=== PATIENT | male | born 1990 | race Hispanic/Latino ===

== ENCOUNTER 2020-11-06 19:01 | Emergency (ER) | payer BC, OTHER ==
[2020-11-06 19:21] LABS: BASOPHILS % (AUTO) 0.7 % (0.0-5.0); EOSINOPHILS % (AUTO) 1.8 % (0.0-8.0); LYMPHOCYTES % (AUTO) 39.4 % (21.0-51.0); MEAN CORPUSCULAR HEMOGLOBIN 29.3 pg (27.0-33.0); MEAN CORPUSCULAR HGB CONC 34.1 g/dL (32.0-36.0); MONOCYTES % (AUTO) 7.7 % (3.0-13.0); PLATELET COUNT (AUTO) 333 K/uL (130-400); RED BLOOD CELL COUNT(AUTO) 5.93 MIL/uL (4.50-6.20); RED CELL DISTRIBUTION WIDTH 12.5 % (11.0-15.5); WHITE BLOOD COUNT (AUTO) 10.2 K/uL (4.8-10.8)
[2020-11-06 19:26] LABS: POTASSIUM 3.6 mmol/L (3.5-5.1)
[2020-11-06 19:31] LABS: ALBUMIN 4.3 g/dL (3.5-5.0); BILIRUBIN,TOTAL 0.6 mg/dL (0.2-1.0); TOTAL PROTEIN, SERUM 8.7 g/dL (6.0-8.3)
[2020-11-06 19:41] LABS: APPEARANCE,URINE Clear (CLEAR); BILIRUBIN,URINE Negative (NEGATIVE); COLOR,URINE Yellow (YELLOW); GLUCOSE, URINE (UA) Negative (NEGATIVE); KETONES,URINE Negative (NEGATIVE); LEUKOCYTE ESTERASE ,URINE Negative (NEGATIVE); NITRATE,URINE Negative (NEGATIVE); OCCULT BLOOD,URINE Negative (NEGATIVE); PROTEIN,URINE Negative (NEGATIVE)
[2020-11-06] MEDS ORDERED: LORAZEPAM 2 MG/ML 1 ML VIAL ONE (19:43)
== END 2020-11-06 20:13 | disposition home or self-care (01) ==
LOC: EDH 19:04
DX: F41.9 Anxiety disorder, unspecified (principal); R07.89 Other chest pain
CPT/HCPCS: 36415; 71045; 80053; 81003; 84484; 85025; 93005; 96374; 99285; J2060

== ENCOUNTER 2020-11-27 07:19 | Emergency (ER) | payer SELFPAY ==
[~2020-11-27] VITALS: Ht 180.3 cm; Wt 106.1 kg
[2020-11-27 07:22] VITALS: BP 155/100
[2020-11-27] MEDS ORDERED: HYDROXYZINE 25 MG TABLET PO SCH (08:00)
[2020-11-27 08:30] VITALS: BP 124/74
[2020-11-27] MEDS ORDERED: METH4TAB3 PO (10:02)
[2020-11-27 10:29] VITALS: BP 125/74
== END 2020-11-27 10:30 | disposition home or self-care (01) ==
LOC: EDH 07:19
DX: F41.9 Anxiety disorder, unspecified (principal); M54.2 Cervicalgia; M54.6 Pain in thoracic spine

== ENCOUNTER 2020-12-04 01:09 | Emergency (ER) | payer SELFPAY ==
[~2020-12-04] VITALS: Ht 180.3 cm; Wt 108.9 kg
[~2020-12-04 01:09] MED LIST: METH4TAB3 PO
[2020-12-04] MEDS ORDERED: LIDOP TP (09:29)
== END 2020-12-04 03:00 | disposition left against medical advice (07) ==
LOC: EDH 01:24
DX: M54.2 Cervicalgia (principal); Z53.21 Procedure and treatment not carried out due to patient leaving prior to being seen by health care provider

== ENCOUNTER 2020-12-04 06:59 | Emergency (ER) | payer OTHER ==
[~2020-12-04] VITALS: Ht 180.3 cm; Wt 111.6 kg
[2020-12-04] MEDS ORDERED: KETOROLAC 60 MG VIAL (30MG/ML) IM ONE (07:45)
[2020-12-04] MEDS ORDERED: ACETAMINOPHEN 500 MG TABLET PO ONE (07:45)
[2020-12-04 08:00] VITALS: BP 128/72
[2020-12-04] MEDS ORDERED: LIDOP TP (09:29)
[2020-12-04 09:34] VITALS: BP 126/72
[2020-12-04 09:53] VITALS: BP 126/72
== END 2020-12-04 09:56 | disposition home or self-care (01) ==
LOC: EDH 06:59
DX: M54.2 Cervicalgia (principal); F41.9 Anxiety disorder, unspecified; F32.9 Major depressive disorder, single episode, unspecified; Z79.899 Other long term (current) drug therapy
CPT/HCPCS: 36415; 72125; 86308; 87071; 87880; 96372; 99284; J1885

== ENCOUNTER 2021-02-16 17:34 | Emergency (ER) | payer OTHER ==
[~2021-02-16] VITALS: Ht 177.8 cm; Wt 108.9 kg
[~2021-02-16 17:34] MED LIST changes: +LIDOP TP
[2021-02-16 17:52] VITALS: BP 153/95
[2021-02-16 17:58] LABS: APPEARANCE,URINE Clear (CLEAR); BILIRUBIN,URINE Negative (NEGATIVE); COLOR,URINE Yellow (YELLOW); GLUCOSE, URINE (UA) Negative (NEGATIVE); KETONES,URINE Negative (NEGATIVE); LEUKOCYTE ESTERASE ,URINE Negative (NEGATIVE); NITRATE,URINE Negative (NEGATIVE); OCCULT BLOOD,URINE Trace (NEGATIVE); PROTEIN,URINE Negative (NEGATIVE); UROBILINOGEN,URINE 0.2 mg/dL (0.2-1.0)
[2021-02-16 18:03] LABS: BASOPHILS % (AUTO) 0.4 % (0.0-5.0); EOSINOPHILS % (AUTO) 2.3 % (0.0-8.0); HEMATOCRIT 48.9 % (42-54); LYMPHOCYTES % (AUTO) 29.1 % (21.0-51.0); MEAN CORPUSCULAR HEMOGLOBIN 29.3 pg (27.0-33.0); MEAN CORPUSCULAR HGB CONC 33.1 g/dL (32.0-36.0); MEAN CORPUSCULAR VOLUME 88.6 fL (79-99); MONOCYTES % (AUTO) 7.6 % (3.0-13.0); NEUTROPHILS % (AUTO) 60.2 % (40.0-77.0); PLATELET COUNT (AUTO) 334 K/uL (130-400); RED BLOOD CELL COUNT(AUTO) 5.52 MIL/uL (4.50-6.20); RED CELL DISTRIBUTION WIDTH 12.6 % (11.0-15.5); WHITE BLOOD COUNT (AUTO) 9.2 K/uL (4.8-10.8)
[2021-02-16 18:16] LABS: CREATININE 0.9 mg/dL (0.5-1.5); POTASSIUM 4.1 mmol/L (3.5-5.1)
[2021-02-16 18:20] LABS: BILIRUBIN,TOTAL 0.4 mg/dL (0.2-1.0); TOTAL PROTEIN, SERUM 8.6 g/dL (6.0-8.3)
[2021-02-16 18:25] LABS: BACTERIA,URINE Rare /HPF (None Seen); RBC,URINE 0-1 /HPF (0-1); SQUAMOUS EPITHELIAL CELL,UR Rare /HPF (0-2); WBC,URINE 0-1 /HPF (0-1)
[2021-02-16] MEDS ORDERED: KETOROLAC 30MG VIAL (30MG/ML) IM ONE (19:00)
[2021-02-16] MEDS ORDERED: DEXAMETHASONE SOD PHOSPHATE 10MG/ML 1ML VIAL ONE (19:56)
[2021-02-16] MEDS ORDERED: IBUP-2070 PO (19:56)
[2021-02-16] MEDS ORDERED: ORPH-43 PO (19:56)
[2021-02-16] MEDS ORDERED: DICY20TA2 PO (19:56)
[2021-02-16] MEDS ORDERED: DEXAMETHASONE 10MG/ML 1ML VIAL 10 MG in 0.9%NACL 50ML 50 ML IV ONE (20:00)
== END 2021-02-16 20:08 | disposition home or self-care (01) ==
LOC: EDH 17:34
DX: S16.1XXA Strain of muscle, fascia and tendon at neck level, initial encounter (principal); R19.7 Diarrhea, unspecified; X58.XXXA Exposure to other specified factors, initial encounter; Y93.89 Activity, other specified; Y92.89 Other specified places as the place of occurrence of the external cause; Y99.8 Other external cause status
CPT/HCPCS: 36415; 80053; 81001; 82150; 83690; 85025; 96365; 96372; 99284; J1100 ×2; J1885

== ENCOUNTER 2021-03-25 19:54 | Emergency (ER) | payer MEDICAID ==
[~2021-03-25] VITALS: Ht 177.8 cm; Wt 107.5 kg
[~2021-03-25 19:54] MED LIST changes: +DICY20TA2 PO; +IBUP-2070 PO; +ORPH-43 PO
[2021-03-25] MEDS ORDERED: MAG/ALUM/SIMETH 30 ML UDCUP PO ONE (21:30)
[2021-03-25] MEDS ORDERED: LIDOCAINE HCL 2% VISCOUS 15 ML UDCUP PO ONE (21:30)
[2021-03-25 21:32] LABS: EOSINOPHILS % (AUTO) 3.1 % (0.0-8.0); HEMATOCRIT 47.3 % (42-54); LYMPHOCYTES % (AUTO) 30.5 % (21.0-51.0); MEAN CORPUSCULAR HEMOGLOBIN 29.6 pg (27.0-33.0); MEAN CORPUSCULAR HGB CONC 33.4 g/dL (32.0-36.0); MEAN CORPUSCULAR VOLUME 88.6 fL (79-99); MONOCYTES % (AUTO) 8.6 % (3.0-13.0); NEUTROPHILS % (AUTO) 56.2 % (40.0-77.0); PLATELET COUNT (AUTO) 307 K/uL (130-400); RED BLOOD CELL COUNT(AUTO) 5.34 MIL/uL (4.50-6.20); RED CELL DISTRIBUTION WIDTH 12.3 % (11.0-15.5); WHITE BLOOD COUNT (AUTO) 7.8 K/uL (4.8-10.8)
[2021-03-25] MEDS ORDERED: ACET-2247 PO (22:09)
[2021-03-25 22:44] VITALS: BP 136/70
== END 2021-03-25 22:45 | disposition home or self-care (01) ==
LOC: EDH 19:54
DX: J02.9 Acute pharyngitis, unspecified (principal); M54.2 Cervicalgia; Z79.1 Long term (current) use of non-steroidal anti-inflammatories (NSAID); Z79.52 Long term (current) use of systemic steroids
CPT/HCPCS: 36415; 85025; 86308; 87880

== ENCOUNTER 2021-10-17 03:32 | Emergency (ER) | payer MEDICAID ==
[~2021-10-17] VITALS: Ht 177.8 cm; Wt 108.9 kg
[~2021-10-17 03:32] MED LIST changes: +ACET-2247 PO
[2021-10-17 03:56] LABS: BASOPHILS % (AUTO) 0.8 % (0.0-5.0); EOSINOPHILS % (AUTO) 4.4 % (0.0-8.0); HEMATOCRIT 50.3 % (42-54); LYMPHOCYTES % (AUTO) 41.2 % (21.0-51.0); MEAN CORPUSCULAR HEMOGLOBIN 29.7 pg (27.0-33.0); MEAN CORPUSCULAR HGB CONC 33.4 g/dL (32.0-36.0); MONOCYTES % (AUTO) 7.7 % (3.0-13.0); NEUTROPHILS % (AUTO) 45.2 % (40.0-77.0); PLATELET COUNT (AUTO) 306 K/uL (130-400); RED BLOOD CELL COUNT(AUTO) 5.65 MIL/uL (4.50-6.20); RED CELL DISTRIBUTION WIDTH 12.5 % (11.0-15.5)
[2021-10-17] MEDS ORDERED: NITROGLYCERIN 1GM OINT 1 INCH/1GM TD ONE (04:00)
[2021-10-17] MEDS ORDERED: ASPIRIN 325MG TAB PO ONE (04:00)
[2021-10-17 04:06] LABS: POTASSIUM 4.1 mmol/L (3.5-5.1)
[2021-10-17 04:12] LABS: BILIRUBIN,TOTAL 0.5 mg/dL (0.2-1.0); TOTAL PROTEIN, SERUM 8.1 g/dL (6.0-8.3)
[2021-10-17 06:13] VITALS: BP 120/76
== END 2021-10-17 06:22 | disposition home or self-care (01) ==
LOC: EDH 03:32
DX: T17.1XXA Foreign body in nostril, initial encounter (principal); J34.89 Other specified disorders of nose and nasal sinuses; R07.89 Other chest pain; R05.8 Other specified cough; R20.8 Other disturbances of skin sensation; R79.89 Other specified abnormal findings of blood chemistry; R03.0 Elevated blood-pressure reading, without diagnosis of hypertension; Z79.899 Other long term (current) drug therapy; Z98.890 Other specified postprocedural states; X58.XXXA Exposure to other specified factors, initial encounter; Y93.89 Activity, other specified; Y92.89 Other specified places as the place of occurrence of the external cause; Y99.8 Other external cause status
CPT/HCPCS: 36415; 71045; 80053; 84484; 85025; 93005

== ENCOUNTER 2021-11-22 13:42 | Emergency (ER) | payer MEDICAID ==
[~2021-11-22] VITALS: Ht 177.8 cm; Wt 110.7 kg
[2021-11-22 13:48] VITALS: BP 147/104
[2021-11-22] MEDS ORDERED: 0.9%NACL 1000ML 1,000 ML IV ONE (14:00)
[2021-11-22] MEDS ORDERED: NAPR500T6 PO (14:58)
[2021-11-22] MEDS ORDERED: FLUT15.845 NS (14:58)
[2021-11-22] MEDS ORDERED: CETI10TA57 PO (14:58)
[2021-11-22] MEDS ORDERED: KETOROLAC 15MG/ML VIAL (15MG/ML) IV ONE (15:00)
== END 2021-11-22 16:40 | disposition home or self-care (01) ==
LOC: EDH 13:42
DX: J06.9 Acute upper respiratory infection, unspecified (principal); R51.9 Headache, unspecified; Z20.822 Contact with and (suspected) exposure to COVID-19
CPT/HCPCS: 87635; 87804 ×2; 96374; 99283; C9803; J1885

== ENCOUNTER 2022-02-23 21:55 | Emergency (ER) | payer MEDICAID ==
[~2022-02-23] VITALS: Ht 177.8 cm; Wt 107.5 kg
[~2022-02-23 21:55] MED LIST changes: +CETI10TA57 PO; +FLUT15.845 NS; +NAPR500T6 PO
[2022-02-23 21:57] VITALS: BP 139/100
[2022-02-23 22:26] LABS: BASOPHILS % (AUTO) 0.5 % (0.0-5.0); EOSINOPHILS % (AUTO) 3.5 % (0.0-8.0); HEMATOCRIT 47.6 % (42-54); LYMPHOCYTES % (AUTO) 36.5 % (21.0-51.0); MEAN CORPUSCULAR HGB CONC 33.6 g/dL (32.0-36.0); MEAN CORPUSCULAR VOLUME 86.4 fL (79-99); MONOCYTES % (AUTO) 7.9 % (3.0-13.0); NEUTROPHILS % (AUTO) 51.3 % (40.0-77.0); PLATELET COUNT (AUTO) 292 K/uL (130-400); RED BLOOD CELL COUNT(AUTO) 5.51 MIL/uL (4.50-6.20); RED CELL DISTRIBUTION WIDTH 12.7 % (11.0-15.5); WHITE BLOOD COUNT (AUTO) 7.7 K/uL (4.8-10.8)
[2022-02-23] MEDS ORDERED: MAG/ALUM/SIMETH 30 ML UDCUP PO ONE (22:30)
[2022-02-23] MEDS ORDERED: LIDOCAINE HCL 2% VISCOUS 15 ML UDCUP PO ONE (22:30)
[2022-02-23] MEDS ORDERED: FAMOTIDINE 20MG TAB PO ONE (22:30)
[2022-02-23] MEDS ORDERED: KETOROLAC 60 MG VIAL (30MG/ML) IM ONE (22:30)
[2022-02-23] MEDS ORDERED: ONDANSETRON 4MG TABLET PO ONE (22:30)
[2022-02-23] MEDS ORDERED: DICYCLOMINE HCL 10 MG/5 ML ML PO ONE (22:30)
[2022-02-23 22:36] LABS: CREATININE 0.9 mg/dL (0.5-1.5); POTASSIUM 3.8 mmol/L (3.5-5.1)
[2022-02-23 22:48] LABS: TOTAL PROTEIN, SERUM 8.1 g/dL (6.0-8.3)
[2022-02-23 23:00] LABS: APPEARANCE,URINE CLEAR (CLEAR); BILIRUBIN,URINE NEGATIVE (NEGATIVE); COLOR,URINE LIGHT-YELLOW (YELLOW); GLUCOSE, URINE (UA) NEGATIVE (NEGATIVE); KETONES,URINE NEGATIVE (NEGATIVE); LEUKOCYTE ESTERASE ,URINE NEGATIVE Leu/uL (NEGATIVE); NITRATE,URINE NEGATIVE (NEGATIVE); OCCULT BLOOD,URINE NEGATIVE (NEGATIVE); PH,URINE 6.5 (5.0-8.0); PROTEIN,URINE NEGATIVE (NEGATIVE); UROBILINOGEN,URINE 0.2 mg/dL (0.2-1.0)
[2022-02-23] MEDS ORDERED: TAMS-1 PO (23:01)
[2022-02-23] MEDS ORDERED: DICY20TA2 PO (23:01)
== END 2022-02-23 23:20 | disposition home or self-care (01) ==
LOC: EDH 21:55
DX: N20.0 Calculus of kidney (principal); R10.12 Left upper quadrant pain; E66.9 Obesity, unspecified; Z68.34 Body mass index [BMI] 34.0-34.9, adult; Z79.899 Other long term (current) drug therapy; Z98.890 Other specified postprocedural states
CPT/HCPCS: 99284; 74176; 84484; 80053; 83690; 85025; 81003; 36415; 96372; Q0162; J1885

== ENCOUNTER 2022-05-15 05:29 | Emergency (ER) | payer MEDICAID ==
[~2022-05-15] VITALS: Ht 177.8 cm; Wt 104.8 kg
[~2022-05-15 05:29] MED LIST changes: +TAMS-1 PO
[2022-05-15] MEDS ORDERED: SOLU-MEDROL 125MG VIAL IM ONE (06:30)
[2022-05-15] MEDS ORDERED: METH4TAB3 PO (06:59)
[2022-05-15 07:15] VITALS: BP 130/91
== END 2022-05-15 07:17 | disposition home or self-care (01) ==
LOC: EDH 05:29
DX: M79.18 Myalgia, other site (principal); K58.9 Irritable bowel syndrome, unspecified; E66.01 Morbid (severe) obesity due to excess calories; Z79.1 Long term (current) use of non-steroidal anti-inflammatories (NSAID); Z79.52 Long term (current) use of systemic steroids; Z79.899 Other long term (current) drug therapy; Z68.33 Body mass index [BMI] 33.0-33.9, adult
CPT/HCPCS: 99283; 96372; J2930

== ENCOUNTER 2023-03-24 19:08 | Emergency (ER) | payer MEDICAID ==
[~2023-03-24] VITALS: Ht 177.8 cm; Wt 108.9 kg
[~2023-03-24 19:08] MED LIST changes: -ORPH-43 PO; +ORPH100T4 PO
[2023-03-24 20:09] VITALS: BP 125/62; PULSE 74; RESP 18; O2SAT 98
[2023-03-24] MEDS ORDERED: METH4TAB3 PO (20:20)
[2023-03-24] MEDS ORDERED: SOLU-MEDROL 125MG VIAL IM ONE (20:30)
== END 2023-03-24 20:44 | disposition home or self-care (01) ==
LOC: EDH 19:08
DX: S93.402A Sprain of unspecified ligament of left ankle, initial encounter (principal); W18.30XA Fall on same level, unspecified, initial encounter; Y93.02 Activity, running; Y92.89 Other specified places as the place of occurrence of the external cause; Y99.8 Other external cause status
CPT/HCPCS: 99283; 73610; 96372; J2930

== ENCOUNTER 2024-08-26 03:55 | Emergency (ER) | payer BC, MEDICAID ==
[~2024-08-26] VITALS: Ht 177.8 cm; Wt 111.1 kg
[~2024-08-26 03:55] MED LIST changes: +NAPR-1506 PO; -NAPR500T6 PO
--- NOTE | 2024-08-26 04:05 | ERN ---
ED Note History of Present Illness Stated Complaint: SKIN PROBLEM Chief Complaint: Skin Problem Time Seen by MD: 04:06 Dictation: This is a 33-year-old male who came with his spouse for evaluation of a small lesion at the nape of his neck. Apparently he felt this on Sunday and he had to work all day today so he came in in the middle of the night. No fever chills. No drainage from the lesion. He did report slight pain when he palpated it Temperature 98.4 pulse 65 respirations 18 blood pressure 146/100 pulse oximetry 98% on room air His previous problems include history of kidney stones, on multiple occasions has hypertension but has not been on any medications, abnormal liver function studies and fatty liver and obesity Allergies: Coded Allergies: No Known Drug Allergies (Unverified Allergy, Unknown, 11/27/20) Home Meds Active Scripts Methylprednisolone (Medrol) 4 Mg Tab.ds.pk, 4 MG PO AD for 6 Days, #1 PACK Prov:TEJAS HERNANDEZ MD 03/24/23 Methylprednisolone (Medrol) 4 Mg Tab.ds.pk, 4 MG PO AD for 6 Days, #1 PACK Prov:TEJAS HERNANDEZ MD 05/15/22 Dicyclomine HCl (Bentyl) 20 Mg Tab, 20 MG PO QIDP, #28 TAB Prov:GIRMA TODD 02/23/22 Tamsulosin HCl (Flomax) 0.4 Mg Cap.er.24h, 0.4 MG PO DAILY, #30 CAPSULE. Prov:GIRMA TODD 02/23/22 Naproxen (Naproxen) 500 Mg Tablet.dr, 500 MG PO BIDPC, #15 TAB Prov:BARBARA GRIFFITH 11/22/21 Fluticasone Propionate (Fluticasone Propionate) 15.8 Ml [place].susp, 15.8 ML NS BID, #1 BOTTLE Prov:BARBARA GRIFFITH 11/22/21 Cetirizine HCl (Cetirizine HCl) 10 Mg Tablet, 10 MG PO DAILY, #30 TAB Prov:BARBARA GRIFFITH 11/22/21 Acetaminophen (Tylenol) 325 Mg Tablet, 650 MG PO Q4HPRN, #50 TAB Prov:GIRMA TODD 03/25/21 Ibuprofen (Ibuprofen) 600 Mg Tablet, 600 MG PO Q6H for neck pain for 5 Days, #15 TAB Prov:SAGARENMANUEL MAHMOOD 02/16/21 Orphenadrine Citrate (Orphenadrine Citrate) 100 Mg Tablet.er, 100 MG PO BID for 10 for 20 Days, #20 TAB Prov:MANNY KEITHRA VEGETABLE PACKER 02/16/21 Dicyclomine HCl (Bentyl) 20 Mg Tab, 20 MG PO TID for diarrhea for 5 Days, #25 TAB Prov:SAGARENMANUEL VEGETABLE PACKER 02/16/21 Lidocaine (Lidoderm Patch 5%) 1 Patch Patch, 1 PATCH TP DAILY for 30 Days, #30 ADH.PATCH Prov:LACEY MARIE MD 12/04/20 Methylprednisolone (Medrol) 4 Mg Tab.ds.pk, 4 MG PO AD, #1 PACK Prov:TEJAS HERNANDEZ MD 11/27/20 Past Medical History Past Medical History: No Pertinent History Additional Past Medical Hx: IBS, morbidly obese Surgical History: None Surgical History Other: RECENT TOOTH EXTRACTION Family History: CAD, DM, HTN Social History: Negative, Lives with family RN Note Reviewed/Agreed w/PFSH: Yes Review of System Dictation Constitutional: Negative for fever,chills, and weight loss Eyes: Negative for injury, pain,redness, and discharge ENT: Negative for injury,pain or swelling Cardiovascular: Negative for chest pain, palpitations, and edema Respiratory: Negative for shortness of breath, cough, and wheezing, Abdomen/GI: Negative for abdominal pain, nausea, vomiting, diarrhea, and const ipation Back: Negative for injury and pain : Negative for injury, bleeding and discharge MS/Extremity: Negative for injury and deformity Skin: Negative for rash, and discoloration positive for 2 cm nodular lesion at the nape of his neck. Neuro: Negative for headache, weakness, numbness, tingling, and seizure Psych: Negative for suicide ideation, homicidal ideation, and hallucinations Initial Vital Sign VS Vital Signs Date Time Temp Pulse Resp B/P (MAP) Pulse Ox O2 Delivery O2 Flow Rate FiO2 08/26/24 03:57 98.4 65 18 146/100 98 Room Air 0 08/26/24 04:09 21 Physical Exam Dictation General: awake, alert, NAD Head/Face: Normocephalic, atraumatic Eyes: PERRL, EOMI, vision at baseline ENT: oral cavity clear, TMs clear, no signs of infection Mallampati score 4 Neck: Trachea midline, supple, no nuchal rigidity extremely short and thick collared size at least 19 or more, buffalo hump Cardiovascular: RRR, normal S1/S2, No MRGs, no JVD Respiratory: CTAB, no respiratory distress, No rales or wheezes Abdomen: Soft, non-tender, non-distended, normal bowel sounds, no guarding or rebound. Skin: Warm, dry, normal turgor, no rash 2 cm lesion at the nape of his neck posteriorly firm tender to palpation. Mild induration but no fluctuance appreciated MS/Extremity: Pulses equal, no cyanosis, neurovascular intact, FROM Neuro: COAx4, GCS 15, strength 5/5, CN 2-12 intact, normal cerebellar exam, normal gait, Psych: Normal behavior, mood, and affect normal Extremities-trace edema without any palpable cords, Homans sign is negative ED Course ED Course Vital Signs Date Time Temp Pulse Resp B/P (MAP) Pulse Ox O2 Delivery O2 Flow Rate FiO2 08/26/24 04:09 98.2 68 20 142/86 99 Room Air* 0 21 08/26/24 03:57 98.4 65 18 146/100 98 Room Air 0 We will perform diagnostic labs, advanced imaging and administer medications according to the patient's complaint. Once the results are available, will review and personally interpreted the labs to rule out any acute life- threatening emergency the trach require immediate intervention and treatment. I will then re-evaluate the patient after treatment and diagnostic exams have return to determine whether the patient requires any further testing, can safely be discharged home or need further admission to hospital for additional treatment and evaluation. Medical Decision Making MDM MDM: Differential diagnosis: Boil, furuncle, carbuncle, lymph node secondary to dandruff in the scalp Rationale: Tests considered and ordered secondary to shared decision making incl ude: Previous outside records reviewed: Old ER visits. Risk of complication and/or morbidity or mortality of patient management: None Medications-Per medication reconciliation Need for hospitalization: Patient does not meet criteria for hospitalization. Need for emergency major/minor surgery: No There are no social concerns with this patient. Prescription drug management Prescriptions will include symptomatic care Patient's prior external medical records from other ER visits were reviewed by me as indicated. Prior testing and results from previous visits were reviewed. Prior tests were taken into account with medical decision making and resource utilization, independent historian/historians were used to obtain complete medical history. I independently interpreted the test that were performed, results were reviewed by me and considered findings on radiology if ordered. Medical management and examination interpretation discussions were had by me with other qualified healthcare professionals as indicated for the patient's care. Problem List Problem List: (1) Carbuncle and furuncle of neck DX & DISP Disposition: Discharge Departure Impression: Primary Impression: Carbuncle and furuncle of neck Additional Impression: Blood pressure elevated without history of HTN Condition: Stable Scripts Dicloxacillin Sodium (Dicloxacillin Sodium) 500 Mg Capsule 1 CAP PO TID for 7 Days, #21 CAP 0 Refills Prov: SHANTA BETTS MD 08/26/24 Additional Instructions: Patient and the caregiver have been informed of all the diagnostic tests and the imaging conducted during the today's visit to the emergency room and has verbalized understanding of the results I have personally reviewed and interpreted all diagnostic exams performed here in the ER today as well as the vital signs documented by the nursing staff. The patient is now being discharged to home and should follow up with the primary care physician or the specialist as directed by the ER staff. Follow-up with primary care provider in 1 to 2 days. Take medications as directed here in the emergency room. Okay to continue home medications unless otherwise discussed during your visit in the emergency room today. Return to [facility] emergency room if symptoms worsen or if there is no improvement. Call 911 if you need immediate assistance. Take Tylenol or Motrin [id number] as needed and if no contraindications are present. Increase oral hydration. A wound culture or urine culture was ordered here in the emergency room department please follow-up with primary care provider and advise them to get repeat ports from our facility. If you had any Wilman wrap/splints that were applied here, please do not remove them until you see your primary care or specialty. Warm compresses to the nape of the neck to allow of the lesion to naturally drain. It is not currently ready to drain. If it increases in size to return to the ER for incision and drainage. Referrals: FREDIS HORN DO (PCP) SHANTA BETTS MD Aug 26, 2024 04:05
[2024-08-26 04:09] VITALS: BP 142/86; PULSE 68; RESP 20; TEMP 98.2; O2SAT 99
[2024-08-26] MEDS ORDERED: DICL500C PO (04:24)
== END 2024-08-26 04:37 | disposition home or self-care (01) ==
LOC: EDH 03:55
DX: L02.13 Carbuncle of neck (principal); L02.12 Furuncle of neck; I10 Essential (primary) hypertension; E66.01 Morbid (severe) obesity due to excess calories; Z68.35 Body mass index [BMI] 35.0-35.9, adult
CPT/HCPCS: 99283